=== PATIENT | female | born 1985 | race African-American/Black ===

== ENCOUNTER 2018-10-15 20:41 | Emergency (ER) | payer MEDICAID, MEDICARE ==
--- NOTE | 2018-10-15 22:22 | ER Document Report ---
ED General - General Chief Complaint: Cough Stated Complaint: COUGH Time Seen by Provider: 10/15/18 21:25 Notes: 33-year-old otherwise healthy female presents to the emergency department with her daughter for cough times 2 days. She says that she has sick contacts in the house and her daughter who is with her as a patient is currently sick as well. She does endorse cough, runny nose, and some sinus pressure. She denies fevers, chills, diaphoresis, ear pain, sore throat, shortness of breath, chest pain, nausea, vomiting, diarrhea. TRAVEL OUTSIDE OF THE [place] IN LAST 30 DAYS: No - HPI Patient complains to provider of: cough for 2 days - Related Data Allergies/Adverse Reactions: No Known Allergies Allergy (Verified 09/01/16 12:51) Past Medical History - General Information source: Patient - Social History Smoking Status: Current Every Day Smoker Chew tobacco use (# tins/day): No Drug Abuse: None Family History: Reviewed & Not Pertinent Patient has suicidal ideation: No Patient has homicidal ideation: No Renal/ Medical History: Denies: Hx Kidney Stones, Hx Peritoneal Dialysis Past Surgical History: Reports: Hx Gynecologic Surgery - D&C - Immunizations Hx Diphtheria, Pertussis, Tetanus Vaccination: Yes Review of Systems - Review of Systems Constitutional: See HPI EENT: See HPI Cardiovascular: See HPI Respiratory: See HPI Gastrointestinal: See HPI Genitourinary: No symptoms reported Female Genitourinary: No symptoms reported Musculoskeletal: No symptoms reported Skin: No symptoms reported Hematologic/Lymphatic: No symptoms reported Neurological/Psychological: No symptoms reported Physical Exam - Vital signs Vitals: Temp Pulse Resp BP Pulse Ox 98 F 84 16 141/96 H 99 10/15/18 21:01 10/15/18 21:01 10/15/18 21:01 10/15/18 21:01 10/15/18 21:01 - Notes Notes: Reviewed vital signs and nursing note as charted by RN. CONSTITUTIONAL: Well-appearing, well-nourished, acting appropriately for age HEAD: Normocephalic, atraumatic, no swelling EYES: PERRL, Conjunctivae clear, no drainage, EOMI, no scleral icterus ENT: External ears without lesions, External auditory canal is patent, TMs without erythema, landmarks clear and well visualized, no rhinorrhea, Pharynx without erythema or lesions, no tonsillar hypertrophy, airway patent, mucous membranes pink and moist NECK: Supple, no cervical lymphadenopathy, no masses CARD: Regular rate and rhythm, no murmurs, no rubs, no gallops, capillary refill < 2 seconds, symmetric pulses RESP: The lungs are clear to auscultation bilaterally, no wheezing, no rales, no rhonchi. Respiratory rate and effort are normal, normal chest excursion. No respiratory distress, no retractions, no stridor, no nasal flaring, no accessory muscle use. ABD/GI: Normal bowel sounds, non-distended, soft, non-tender, no rebound, no guarding, no palpable organomegaly EXT: Normal ROM in all joints, non-tender to palpation, no effusions, no edema SKIN: Normal color for age and race, warm, dry, good turgor, no acute lesions noted NEURO: No facial asymmetry, moves all extremities equally, motor and sensory function intact Course - Re-evaluation Re-evalutation: 10/15/18 22:55 Well-appearing 33-year-old female presents with a cough times 2 days. She has no fevers and there are sick contacts in the house. Physical exam was unremarkable, TMs were clear, no tonsillar exudate present uvula was midline. At this point I have no concern for a life-threatening illness and this most likely represents a viral illness. - Vital Signs Vital signs: Temp Pulse Resp BP Pulse Ox 98 F 84 16 141/96 H 99 10/15/18 21:01 10/15/18 21:01 10/15/18 21:01 10/15/18 21:01 10/15/18 21:01 Discharge - Discharge Clinical Impression: Cough, Viral illness Condition: Good Disposition: HOME, SELF-CARE Instructions: Acetaminophen, Fever ([facility]), Viral Syndrome ([facility]) Additional Instructions: You are seen in the emergency department this evening for a cough that is most likely due to a viral illness. This is also called the common cold. Because you have sick contacts in your house it is most likely that you received it. If you develop high fever, in vomiting, profuse diarrhea, pass out or have any other concerning symptoms please return to the emergency department. Referrals: ORALIA OLVERA MD [Primary Care Provider] - Follow up as needed
[2018-10-15] MEDS ORDERED: ACETAMINOPHEN 325 MG TABLET PO ONE (22:23)
[2018-10-15 23:42] VITALS: BP 140/89
== END 2018-10-15 23:42 | disposition home or self-care (01) ==
LOC: ER 20:41
DX: R05 Cough (principal); B34.9 Viral infection, unspecified; R09.89 Other specified symptoms and signs involving the circulatory and respiratory systems; R51 Headache; F17.200 Nicotine dependence, unspecified, uncomplicated
CPT/HCPCS: 99283; J3490